=== PATIENT | female | born 1995 | race Caucasian/White ===

== ENCOUNTER 2017-08-15 07:20 | Day surgery (SDC) | payer OTHER ==
[~2017-08-15] VITALS: Ht 149.9 cm; Wt 59.0 kg
[2017-08-15] MEDS ORDERED: CLINDAMYCIN 600 MG in DEXTROSE 5% 50 ML IV SCH (09:05)
[2017-08-15] MEDS ORDERED: BUPIVACAINE-MPF 0.25% 30 ML VIAL INJ ONE (10:48)
[2017-08-15] MEDS ORDERED: SUCCINYLCHOLINE CHLORIDE 200 MG/10 ML VIAL IV ONE (11:10)
[2017-08-15] MEDS ORDERED: GLYCOPYRROLATE 0.2 MG/ML VIAL IV ONE (11:10)
[2017-08-15] MEDS ORDERED: SEVOFLURANE 250 ML BTL INH ONE (11:10)
[2017-08-15] MEDS ORDERED: ROCURONIUM 50 MG/5 ML VIAL IV ONE (11:10)
[2017-08-15] MEDS ORDERED: PROPOFOL 200 MG/20 ML VIAL IV ONE (11:10)
[2017-08-15] MEDS ORDERED: ONDANSETRON 4 MG/2 ML VIAL IVP ONE (11:10)
[2017-08-15] MEDS ORDERED: DEXAMETHASONE 4 MG/ML VIAL IVP ONE (11:10)
[2017-08-15] MEDS ORDERED: NEOSTIGMINE 1:1000 10 MG/10 ML VIAL IV ONE (11:10)
[2017-08-15] MEDS ORDERED: MIDAZOLAM 2 MG/2 ML VIAL ONE (11:17)
[2017-08-15] MEDS ORDERED: MEPERIDINE 50 MG/ML SYR ONE (11:17)
[2017-08-15] MEDS ORDERED: fentaNYL 0.05 MG/ML VIAL ONE (11:17)
[2017-08-15] MEDS ORDERED: LACTATED RINGERS 1,000 ML IV SCH (11:52)
[2017-08-15] MEDS ORDERED: ONDANSETRON 4 MG/2 ML VIAL IVP PRN (11:55)
[2017-08-15] MEDS ORDERED: HYDROmorphone 1 MG/ML AMP IVP PRN ×2 (11:55→12:25)
[2017-08-15] MEDS ORDERED: MEPERIDINE 25 MG/ML SYR IVP PRN (11:55)
[2017-08-15] MEDS ORDERED: diphenhydrAMINE 50 MG/ML VIAL IVP PRN (11:55)
[2017-08-15] MEDS ORDERED: MORPHINE SULFATE 2 MG/ML SYR IVP PRN (12:25)
[2017-08-15] MEDS ORDERED: ONDANSETRON 4 MG/2 ML VIAL IV PRN (12:25)
[2017-08-15] MEDS ORDERED: MORPHINE SULFATE 4 MG/ML SYR IV PRN (12:25)
[2017-08-15] MEDS ORDERED: NACL 0.9% 1,000 ML IV SCH (12:25)
[2017-08-15] MEDS ORDERED: HYDROcodone/APAP 5/325 MG 1 TAB TAB PO PRN (12:25)
== END 2017-08-15 14:35 | disposition home or self-care (01) ==
LOC: MMU 07:20 → MDS 07:20
PROVIDERS: ATTEND Surgery
DX: K80.10 Calculus of gallbladder with chronic cholecystitis without obstruction (principal); Z88.8 Allergy status to other drugs, medicaments and biological substances; Z98.890 Other specified postprocedural states
CPT/HCPCS: 36415; 47562; 71010; 86886; 86900; 86901; J2175; J2250; J3010; J3490; J7060; J7120; 82374; J0330; J1100; J2405; J2704; J2710; J7030